=== PATIENT | male | born 1990 | race Two or more races ===

== ENCOUNTER 2021-06-14 21:08 | Emergency (ER) | payer SELFPAY ==
[2021-06-14 21:42] VITALS: BP 141/99; PULSE 68; TEMP 98.3; BMI 26.6
[2021-06-14] MEDS ORDERED: FAMOTIDINE 20 MG/50 ML IVPB 20 MG/50 ML MG IVPB ONE ×2 (22:23→22:51)
[2021-06-14] MEDS ORDERED: MAG HYDROX/AL HYDROX/SIMETH 30 ML UNIT-DOSE CUP PO ONE (22:23)
[2021-06-14] MEDS ORDERED: SODIUM CHLORIDE 1,000 ML IV STA (22:24)
[2021-06-14] MEDS ORDERED: MAG HYDROX/AL HYDROX/SIMETH 30 ML UNIT-DOSE CUP ONE (22:52)
[2021-06-14 23:57] LABS: BASO % 0.5 % (0-2.0); EOS % 1.2 % (0-4.5); HEMATOCRIT 40.7 % (35.4-49); HEMOGLOBIN 14.3 GM/dl (11.7-16.9); LYMPH % 21.3 % (8-40); MCH 34.5 pg (25.7-33.7); MCHC 35.1 g/dl (32.0-35.9); MEAN CELL VOLUME 98.2 fl (80-96); MEAN PLT VOLUME 8.2 fl (7.5-11.1); PLATELET COUNT 206 10^3/uL (134-434); RBC 4.14 M/mm3 (4.00-5.60); RDW 12.3 % (11.9-15.9); WHITE BLOOD COUNT 6.2 K/mm3 (4.0-10.8)
[2021-06-15 01:03] LABS: ALBUMIN 4.3 g/dl (3.4-5.0); ALK PHOS 84 U/L (45-117); ANION GAP 6 MMOL/L (8-16); BILIRUBIN,TOTAL 0.6 mg/dL (0.2-1); BLOOD UREA NITROGEN 12.1 mg/dL (7-18); CHLORIDE 106 mmol/L (98-107); CO2 26 mmol/L (21-32); CREATININE 0.7 mg/dL (0.55-1.3); GLUCOSE,RANDOM 95 mg/dL (74-106); SGOT/AST 41 U/L (15-37); SGPT/ALT 61 U/L (13-61); SODIUM 139 mmol/L (136-145); TOT PROT 7.5 g/dl (6.4-8.2)
== END 2021-06-15 01:32 | disposition home or self-care (01) ==
LOC: FER 21:08
PROC: 3E033GC Introduction of Other Therapeutic Substance into Peripheral Vein, Percutaneous Approach (ICD-10-PCS; principal; 2021-06-14)
DX: K21.9 Gastro-esophageal reflux disease without esophagitis (principal)
CPT/HCPCS: 36415; 80053; 82550; 82553; 84484; 85025; 93005; 99284-25

== ENCOUNTER 2021-06-15 20:46 | Emergency (ER) | payer OTHER ==
[2021-06-15 20:56] VITALS: BP 135/97; PULSE 78; TEMP 98.8; BMI 26.6
[2021-06-15] MEDS ORDERED: KETOROLAC TROMETHAMINE 30 MG/1 ML VIAL IM ONE (21:46)
[2021-06-15] MEDS ORDERED: KETOROLAC TROMETHAMINE 30 MG/1 ML VIAL IVPUSH ONE (21:47)
[2021-06-15] MEDS ORDERED: ACETAMINOPHEN 1000 MG/100 ML VIAL (NON FORMULARY) IVPB ONE (21:47)
[2021-06-15] MEDS ORDERED: KETOROLAC TROMETHAMINE 30 MG/1 ML VIAL ONE (22:03)
[2021-06-15] MEDS ORDERED: ACETAMINOPHEN INJECTION 100 ML IVPB ONE (22:03)
[2021-06-15 22:24] LABS: MCHC 34.7 g/dl (32.0-35.9)
[2021-06-15 22:29] LABS: BASO % 2.2 % (0-2.0); EOS % 2.3 % (0-4.5); HEMOGLOBIN 14.5 GM/dl (11.7-16.9); LYMPH % 26.9 % (8-40); MCH 34.5 pg (25.7-33.7); MEAN CELL VOLUME 99.5 fl (80-96); MEAN PLT VOLUME 8.2 fl (7.5-11.1); MONO % 9.3 % (3.8-10.2); NEUT % 59.3 % (42.8-82.8); PLATELET COUNT 208 10^3/uL (134-434); RBC 4.22 M/mm3 (4.00-5.60); RDW 11.6 % (11.9-15.9); WHITE BLOOD COUNT 4.9 K/mm3 (4.0-10.8)
[2021-06-15 22:38] LABS: ALBUMIN 4.8 g/dl (3.4-5.0); ALK PHOS 73 U/L (45-117); ANION GAP 12 MMOL/L (8-16); BILIRUBIN,TOTAL 1.1 mg/dl (0.2-1); CALCIUM 9.2 mg/dl (8.5-10); CHLORIDE 105 mmol/L (98-107); CO2 21 mmol/L (21-32); CREATININE 0.6 mg/dl (0.55-1.3); GLUCOSE,RANDOM 98 mg/dl (74-106); SGOT/AST 54 U/L (15-37); SGPT/ALT 57 U/L (13-61); SODIUM 138 mmol/L (136-145); TOT PROT 7.5 g/dl (6.4-8.2)
[2021-06-19 09:52] LABS: SARS-CoV-2 NAA NOT DETECTED
== END 2021-06-15 23:49 | disposition home or self-care (01) ==
LOC: FER 20:46
PROC: 3E033GC Introduction of Other Therapeutic Substance into Peripheral Vein, Percutaneous Approach (ICD-10-PCS; principal; 2021-06-15)
DX: R07.9 Chest pain, unspecified (principal)
CPT/HCPCS: 36415; 71046-TC-FY; 80053; 82550; 82553; 84484; 85025; 93005; 99285-25; C9803; J0131; U0003; U0005